=== PATIENT | male | born 1945 | race Caucasian/White ===

== ENCOUNTER 2020-11-24 06:26 | Day surgery (SDC) | payer MEDICARE, SELFPAY ==
[2020-11-21 07:58] VITALS: BMI 25.9
[2020-11-24] VITALS (9 sets, daily range): BP systolic 113–150; BP diastolic 45–85; PULSE 44–47; RESP 10–16; TEMP 36.3–36.5; O2SAT 96–100; BMI 25.9
--- NOTE | 2020-11-24 | PATH_ITS ---
[facility] Accession Number: [id number] . 01 Material submitted: . PART A: body - SPERMATOCELE PART B: scrotum - HYDROCELE SAC . 01 Diagnosis: A. Spermatocele: Cystic/membranous tissue, consistent with spermatocele. . B. Hydrocele Sac: Cystic/membranous tissue, consistent with hydrocele. MRV 11/27/2020 1133 Local . 01 Comment: The epithelium lining in part A (spermatocele) is short columnar or cuboidal, focally with possible cilia identified, supporting the interpretation of a spermatocele. . 01 Electronically signed: . Juli Lopez MD, Pathologist NPI- [id number] . 01 Gross description: . A. Received in formalin, labeled spermatocele consists of a 2.0 x 1.5 x 0.5 cm arcos-pink fragment of soft tissue, which is inked blue, serially sectioned and entirely submitted in cassettes A1-A2. B. Received in formalin, labeled hydrocele sac consists of a 4.0 x 3.0 x 2.5 cm arcos-pink fibromembranous fragment of soft tissue. Line Servicer sections are submitted in cassettes B1-B2. ([id number]) /MRV 11/25/2020 0947 Local . 01 Pathologist provided ICD-10: N43.3 . 01 CPT . 259442, 018806 Performed at: 01 [facility] [address] [place] [address], [place], [place] [id number] MD Derrick Wallace MD Phone: [phone]
--- NOTE | 2020-11-24 07:13 | PM.PREOP ---
Pre-operative Note Interval Note History & Physical reviewed/Exam performed by Physician: Yes Changes to H&P: No
[2020-11-24 07:17] LABS: COVID19 -Nasal RAPID Negative (Negative)
[2020-11-24] MEDS: LACTATED RINGERS 1,000 ML 42 ML IV ×2 (07:46→09:35)
[2020-11-24] MEDS: GABAPENTIN 300 MG CAPSULE PO (08:07)
[2020-11-24] MEDS: ACETAMINOPHEN 325 MG TABLET 975 MG PO (08:08)
--- NOTE | 2020-11-24 09:22 | SUR.OPER ---
Supine on padded OR bed, head on pillow, arms secured on padded arm boards at <90 degrees abduction, legs uncrossed, safety belt at thigh, tape over blanket over lower legs.
[2020-11-24] MEDS: BUPIVACAINE LIPOSOME 266 MG/20 ML VIAL INJ (09:25)
[2020-11-24] MEDS: CEFAZOLIN 1 GM VIAL 2 GM IV (09:26)
[2020-11-24] MEDS: BUPIVACAINE 0.25% (PF) VIAL 30 ML INJ (09:28)
[2020-11-24] MEDS: EPINEPHrine 1 MG/ML 0.15 MG INJ (09:29)
[2020-11-24] MEDS: NEOMYCIN/POLYMYXIN/BACITRA UD OINT 1 EACH TOP (09:31)
--- NOTE | 2020-11-24 10:37 | P.OP_ITS ---
Operative Date/Time/Diagnoses Date of procedure: 11/24/20 Time of procedure: 10:37 Pre-op diagnosis: Left hydrocele Post-op diagnosis: other (1. Complicated left hydrocele2. Multiple spermatoceles) Procedure & Clinicians Procedure: 1. Left hydrocelectomy-complicated 2. Left spermatocelectomy (multiple) Same procedure as scheduled: No (Multiple, incidental spermatoceles encounter) Indications: Symptomatic left hydrocele Surgeon: Jose Vital Click Yes if Unassisted: Yes Anesthesia Type: General and Local Operative Notes Findings: There was a simple appearing peripheral hydrocele sac. There multiple septations and chronic scarring of the tunica vaginalis. There were multiple spermatoceles measuring 4-20 mm in diameter Closure Type: primary Specimen(s): other (1. Spermatoceles 2. Hydrocele sac) Applied: drain(s) (10 Upper Sorbian fenestrated drain) Estimated Blood Loss (mL): 2 Blood products transfused: none Procedure in detail: The patient was positioned supine and was administered general anesthesia. The lower abdomen, genitalia, and groin were then prepped and draped in sterile fashion. A solution of cord% Marcaine with epinephrine was then infiltrated the midline scrotal raphae a and subcutaneous dartos fascia. The cautery pen was then used to divide the midline scrotal raphae a. The cautery pen was also used to divide the dartos fascia down the level the left tunica vaginalis. At this point appropriate plane was developed between the dartos fashion tunica vaginalis in a moderately large left hydrocele was then delivered from the left hemiscrotum. Cautery pen was then used to divide the midline tunica vaginalis anteriorly with the findings as described above. Extensive blunt constant sharp, and cautery dissection was required to open all the septations and excise redundant and scarred tunica vaginalis. Next, meticulous blunt, sharp, and cautery dissection was undertaken to isolate and mobilize multiple spermatoceles attached in a cluster. The base was then suture ligated with 2-0 Monocryl. Next, the tunica vaginalis was reflected posteriorly and a book sorter repair was conducted with a running horizontal mattress of 3-0 Monocryl. The inferior pole was secured to the inferior and inner scrotal wall with an interrupted 3-0 Monocryl. Next the inferolateral left scrotal wall was infiltrated with Exparel and a 10 Upper Sorbian fenestrated drain was passed through this area. The distal end of the drain was trimmed and the excess drain material discarded. The drain was secured to the skin using 2-0 silk. Next, the skin and dartos fascia along the midline incision was infiltrated with Exparel. The dartos fascia was then closed with a running vertical mattress of 2-0 Monocryl. The skin was reapproximated with a running horizontal mattress of 4-0 Monocryl. Neosporin ointment was then applied to the incision line. Dry sterile fluffs were then applied to the scrotum and the patient was fitted with an athletic supporter. The drain was then placed to bulb self suction. The patient was then awakened, transferred to [facility], and transferred to recovery in stable condition. Complications: none Post-operative Condition: stable Disposition: PACU Plan for aftercare: Discharge home
--- NOTE | 2020-11-24 10:41 | SUR.PHASEI ---
Patient from OR after General Anesth with Dr Melo and RN. Breathing unassisted on RA.
--- NOTE | 2020-12-01 09:17 | PM.HP.1 ---
History of Present Illness History of Present Illness Date Patient Seen: 11/24/20 Time Patient Seen: 07:30 Chief complaint: SDC Narrative: The patient is a 75-year-old white male presenting today for schedule left hydrocelectomy. The condition is been present perhaps for years, but over recent months the left hemiscrotum has demonstrated enlargement and increasing discomfort in the form of pain and tenderness. Most recent encounter 10/09/2020, was consistent with symptomatic hydrocele. Patient History Medical History BPH w urinary obs/LUTS Coronary heart disease Gout Hearing impairment Hyperlipidemia Incomplete bladder emptying Kidney stones Left hydrocele Surgical History H/O circumcision History of coronary artery stent placement Family & Social History Social History: household members spouse Tobacco & Substance use: Smoking Status Never smoker alcohol intake current alcohol intake frequency 3 or more drinks per day Substance Use Type does not use Meds Home Medications and Allergies Home Medications Medication Instructions Recorded Confirmed Type aspirin 81 mg chewable tablet 81 mg PO DAILY 10/09/20 11/24/20 History atorvastatin 40 mg tablet 40 mg PO DAILY 10/09/20 11/24/20 History tamsulosin 0.4 mg capsule (Flomax) 0.4 mg PO DAILY 10/09/20 11/24/20 History oxycodone 5 mg tablet 5 mg PO Q4H PRN #20 tab 11/24/20 Rx Allergies Allergy/AdvReac Type Severity Reaction Status Date / Time No Known Drug Allergies Allergy Verified 11/24/20 07:06 pollen Allergy Unknown Uncoded 10/09/20 10:50 Review of Systems Review of Systems ROS: Yes All systems reviewed with the patient and are negative except as otherwise documented Exam Vital Signs (past 8 hours): Oxygen Delivery Method Room Air Narrative Exam Narrative: He is a well-developed and well-nourished elderly gentleman in no acute distress. Head/neck-sclera clear and pupils are round and equal bilaterally. No visible evidence of adenopathy or JVD. Chest-clear, equal, and unlabored expansion bilaterally. Heart-regular rate and regular rhythm. No abnormal heart tones appreciated. Genitalia-normal adult phallus. Meatus is patent and orthotopic. Scrotum is without lesion, rash, or mass. Right testicle is descended and palpably normal. Left hemiscrotum is occupied by a moderately large fluid collection without palpable mass. Assessment & Plan Assessment & Plan narrative: Assessment: 1. Symptomatic left hydrocele. Plan: 1. Proceed with scheduled LEFT HYDROCELECTOMY. Time Spent With Patient Critical Care time: I spent a total of [] minutes of critical care time on this patient's care today; this time is exclusive of procedural time.
== END 2020-11-24 12:15 | disposition home or self-care (01) ==
PROVIDERS: Family Provider Student in an Organized Health Care Education/Training Program; PCP Student in an Organized Health Care Education/Training Program; Referring Provider Specialist; Visit Provider Specialist
PROC: (CPT 55040; principal; 2020-11-24 09:15)
DX: N43.2 Other hydrocele (principal); N43.42 Spermatocele of epididymis, multiple; N40.1 Benign prostatic hyperplasia with lower urinary tract symptoms; N13.8 Other obstructive and reflux uropathy; R33.8 Other retention of urine; I25.10 Atherosclerotic heart disease of native coronary artery without angina pectoris; E78.5 Hyperlipidemia, unspecified; Z20.822 Contact with and (suspected) exposure to COVID-19; Z95.5 Presence of coronary angioplasty implant and graft; Z87.442 Personal history of urinary calculi
CPT/HCPCS: 55040; 82962; 87635; C9290; J0171; J0690; J1100; J1885; J2250; J2405; J2704; J3010

== ENCOUNTER 2021-05-18 08:12 | Day surgery (SDC) | payer MEDICARE, SELFPAY ==
[2021-05-13 08:30] VITALS: BMI 25.4
[2021-05-18] VITALS (17 sets, daily range): BP systolic 84–143; BP diastolic 38–74; PULSE 40–53; RESP 10–23; TEMP 35.7–36.6; O2SAT 93–100; BMI 25.4
--- NOTE | 2021-05-18 08:29 | P.OP.PRE_ITS ---
Pre-operative Note COVID-19 Criteria for continued procedure: Expected advancement of disease process, Possibility delay results in more complex future surgery or treatment, Increased loss of function, Deterioration of the patient's condition or overall health, Delay expected to result in less-positive ultimate med/surg outcome and Non- surgical alternatives not available or appropriate per current SOC Interval Note History & Physical reviewed/Exam performed by Physician: Yes Changes to H&P: No
[2021-05-18] MEDS: ACETAMINOPHEN 325 MG TABLET 975 MG PO (08:35)
[2021-05-18] MEDS: LACTATED RINGERS 1,000 ML 42 ML IV ×2 (08:35→12:08)
[2021-05-18] MEDS: GABAPENTIN 300 MG CAPSULE PO (08:35)
--- NOTE | 2021-05-18 09:28 | SUR.PREOP ---
[facility] covid test result done on 05/16 verified by 2 nurses - myself and Priscilla Murdock RN
--- NOTE | 2021-05-18 09:55 | SUR.OPER ---
Lithotomy on padded OR bed, head on pillow, arms secured on padded arm boards at <90 degrees abduction. Legs secured in padded yellow fins stirrups.
[2021-05-18] MEDS: CEFAZOLIN 2 GM/20 ML SYRINGE IV (10:26)
[2021-05-18] MEDS: BELLADONNA/OPIUM SUPPOSITORIES 1 EACH PR (11:18)
--- NOTE | 2021-05-18 11:46 | PM.OP.1 ---
Operative Date/Time/Diagnoses Date of procedure: 05/18/21 Time of procedure: 11:46 Pre-op diagnosis: 1. BPH. 2. Bladder outlet obstruction. Post-op diagnosis: same Procedure & Clinicians Procedure: 1. Transurethral resection of prostate. Same procedure as scheduled: Yes Indications: 1. BPH. 2. Bladder outlet obstruction. Surgeon: Jose Vital Click Yes if Unassisted: Yes Anesthesia Type: General Operative Notes Findings: 1. Urethra-normal caliber without annular stricture or lesion. 2. External sphincter coapted with normal overlying urothelium. 3. 4.5-5 cm length prostatic urethra with markedly elevated median bar. 4. Bladder-2+ trabeculation. There is a narrow neck diverticulum emanating off the right posterior lateral wall. Ureteral orifices are normal position bilaterally with clear efflux. No evidence of stone, tumor. There is impressive intravesical protrusion of median lobe creating at globular obstruction of the bladder neck. Closure Type: not applicable Specimen(s): other (Prostate chips) Applied: catheter ([address] hematuria catheter.) Estimated Blood Loss (mL): 5 Blood products transfused: none Procedure in detail: The patient was positioned supine was administered general anesthesia. He was then repositioned semi lithotomy, and the lower abdomen, genitalia, and groin were then prepped and draped in sterile fashion. The resectoscope was then advanced in the lower urinary tract under direct visualization with the findings as described above. Next the sheath was fitted with the working element and electrocautery loop. Transurethral resection of prostate was commenced by 1st taking down the very large intravesical median lobe in median bar. There is modest residual lateral lobe hyperplasia which was resected from bladder neck to just proximal of the verumontanum as was the median lobe. All chips and clots were irrigated with the Nitza he evacuator and manually with the TUR loop. Hemostasis was obtained with electric cautery. The bladder was then left partially fills and resectoscope was removed. A 24 Macanese, 3 way hematuria catheter was then advanced and lower urinary track over a catheter stylet. The balloon was inflated to [address] catheter was then connected to normal saline continuous bladder irrigation and gravity outflow. Patient was then repositioned in supine, was awakened, and was transferred to [facility] for transport to PACU. Complications: none Post-operative Condition: stable Disposition: PACU Plan for aftercare: Admit as outpatient with a bed.
--- NOTE | 2021-05-18 12:11 | SUR.PHASEI ---
Pt arrived, oral airway in for patency of airway, 02 nasal cannula added. BP low, treated with Iv flds. BP responding well.
--- NOTE | 2021-05-18 12:15 | SUR.PHASEI ---
Airway out, report to Paige.
--- NOTE | 2021-05-18 12:21 | SUR.PHASEI ---
1214 Pt awoke to voice, oral airway removed, breathing unassisted. Assumed care from Priscilla RN. SBAR report at bedside.
--- NOTE | 2021-05-18 13:40 | SUR.PHASEI ---
Pt transferred to room 218. SBAR update at bedside to Chata PINEDA. Continuous bladder irriagtion in place, output light pink.
--- NOTE | 2021-05-18 14:02 | PC.NURSE ---
admit pt to room 218 from PACU. VSS; HR 45. pt states chronically in the 40s. Denies need for pain medication. Instructed pt to notify RN if discomfort increases or occurs. scant bleeding from urethra, mayte-pad in place. Continuous bladder irrigation with pale pink urinary output. Pt oriented to room and plan of care. supportive spouse at bedside. Message left on 's cell phone and at his clinic regarding orders for fluids and pain medication as they've been DC'd.
[2021-05-18] MEDS: TAMSULOSIN 0.4 MG CAPSULE 0.8 MG PO (21:11)
[2021-05-19 01:32] VITALS: BP 107/50; PULSE 52; RESP 18; TEMP 37.1; O2SAT 97
[2021-05-19 04:31] VITALS: BP 102/54; PULSE 51; RESP 18; TEMP 37; O2SAT 99
[2021-05-19 07:28] VITALS: O2SAT 99
[2021-05-19 08:03] VITALS: BP 125/64; PULSE 53; TEMP 37.1; O2SAT 99
[2021-05-19] MEDS: ASPIRIN 81 MG CHEW TAB PO (08:35)
[2021-05-19 11:57] VITALS: BP 115/58; PULSE 46; TEMP 37; O2SAT 100
--- NOTE | 2021-05-19 12:13 | PM.DS.1 ---
History of Present Illness History of Present Illness Date Patient Seen: 05/19/21 Time Patient Seen: 12:13 Chief complaint: TURP Narrative: Patient is a 75-year-old white male that underwent transurethral resection of the prostate for severe bladder outlet obstruction due to prostate on 05/18/2021. His postoperative course is been entirely unremarkable and that he has required no opioid analgesics, has tolerated general diet without nausea or vomiting, and is ambulating without assistance. Discharge Providers Provider Date of admission: 05/18/21 08:12 Discharge Date: 05/19/21 Primary care physician: Mandeep Velasquez MD Discharge provider: Jose Vital MD Summary Hospital Course Discharge Diagnosis: 1. Bladder outlet obstruction. 2. BPH. Hospital Course: Patient was admitted on the morning of 05/18/2021 and underwent uncomplicated transurethral resection of the prostate under general anesthesia. Postoperative course was entirely unremarkable as indicated in the HPI. Early in the morning on the 1st postop per day the continuous bladder irrigation inflow was discontinued and inflow plug placed. The patient subsequently ambulated without incident and outflow character remained a very light pink without clots. In the late morning of 05/19/2021 the patient was stable for discharge. Exam Vital Signs (past 8 hours): - 05/19/21 04:31 05/19/21 07:28 05/19/21 08:03 Temperature 98.6 F 98.7 F Pulse Rate 51 L 53 L Respiratory Rate 18 Blood Pressure 102/54 L 125/64 Pulse Oximetry 99 99 99 05/19/21 11:57 Temperature 98.6 F Pulse Rate 46 L Respiratory Rate Blood Pressure 115/58 L Pulse Oximetry 100 Oxygen Delivery Method Room Air Oxygen Flow Rate 0 Narrative Exam Narrative: Sitting upright in a bedside chair no acute distress. Abdomen is protuberant soft bowel tones are normal. Catheter outflow is a light pink/watermelon color without clots. [facility] Medical History (Updated 05/13/21 @ 09:13 by Sherry Bowen RN) BPH w urinary obs/LUTS Bradycardia Coronary heart disease Gout Hearing impairment Hyperlipidemia Incomplete bladder emptying Kidney stones Left hydrocele BONNIE (obstructive sleep apnea) Surgical History (Updated 05/13/21 @ 09:07 by Sherry Bowen RN) H/O circumcision History of coronary artery stent placement (~2000) History of coronary artery stent placement (~2005) History of hydrocelectomy (11/24/20) Social History marital status: number of children: 0 household members: spouse occupational status: other Smoking Status: Former smoker alcohol intake: current caffeine: Yes (coffee) Type(s) of exercise: walking duration: 30-45 minutes/day Discharge Assessment & Plan Assessment and Plan Assessment: Assessment: 1. Stable postop day 1. Status post transurethral resection of prostate for severe bladder outlet obstructive symptoms. Plan: 1. Discharge home today. 2. Schedule supervised voiding trial in the Urology Clinic 05/20/2021. 3. Follow-up surgical pathology report-pending at discharge. Discharge Plan Discharge Plan Patient Disposition: Home Provider Discharge Comment: Present to Urology Clinic at 7:30 a.m. 05/20/2021 for planned Oropeza catheter removal and voiding trial. Discharge orders & Medications Prescriptions: Continued atorvastatin 40 mg tablet 40 mg PO DAILY 0RF aspirin 81 mg tablet,chewable 81 mg PO DAILY 0RF tamsulosin [Flomax] 0.4 mg capsule 0.8 mg PO BEDTIME Qty: 180 3RF Follow up/Referrals: Mandeep Velasquez MD [Primary Care Provider] - Diet/Activity/Treatments Diet: Diet as Tolerated Activity: To not lift greater than 15 lb nor strenuous activity x4 weeks. Catheter: 2-way Oropeza Skin/Wound/Dressing Care Report to your healthcare provider any signs of infection, such as:: chills, fever, night sweats, increased pain and unusual drainage Visit Report/Discharge Packet Instructions: How to Care for Your Oropeza Catheter -- Male, DI for Transurethral Resection of the Prostate Stand Alone Forms: Surgery Discharge Discharge Data Primary Care Provider: Mandeep Velasquez Quality VTE Deep Vein Thrombosis/Pulmonary Embolism Present on Admission: No
--- NOTE | 2021-05-19 14:21 | PC.NURSE ---
1300 Discharge instructions and home care handout reviewed with patient, he states understanding and has no further questions or concerns at this time. Oropeza draining clear pink urine, and patient states understanding of how to care for his catheter at home. Patient able to ambulate and tolerating well. Patient instructed to follow up at [facility]/ urology clinic tomorrow at 730 am. Patient will start his antibiotic prescription tonight as directed. Escorted out via wheelchair by ZAY to be discharged to home with his .
--- NOTE | 2021-05-27 | PATH_ITS ---
[facility] Accession Number: [id number] No. of containers..01 Tissue . 01 Material submitted: . prostate - PROSTATE CHIPS . 02 Diagnosis: A. Prostate Chips, Resection: Benign prostatic stroma with benign epithelium. [facility] 05/25/2021 0135 Local . 02 Electronically signed: . Ilsa Serrano MD, Pathologist NPI- [id number] . 01 Gross description: . The specimen is received in formalin and labeled with the patient's name is composed of 7 grams of an aggregate of arcos-white soft tissue fragments which measures 7.0 x 4.0 x 1.0 cm in aggregate. The specimen is entirely submitted. ([id number]) /MRV 05/20/2021 1327 Local . 02 Pathologist provided ICD-10: N13.8 . 02 CPT . 806779 Specimen Comment: A courtesy copy of this report has been sent to [phone] Specimen Comment: A duplicate report has been generated due to demographic updates. Performed at: 01 [facility] [address] [facility], [place], [place] [id number] MD Derrick Wallace MD Phone: [phone] Performed at: 02 [facility] [address] [place], [place] [id number] MD Casi Marks MD Phone: [phone]
== END 2021-05-19 13:15 | disposition home or self-care (01) ==
LOC: AC 05-19 12:13 → OR 05-19 14:39
PROVIDERS: Family Provider Student in an Organized Health Care Education/Training Program; PCP Student in an Organized Health Care Education/Training Program; Referring Provider Specialist; Visit Provider Specialist
PROC: 0VT08ZZ Resection of Prostate, Via Natural or Artificial Opening Endoscopic (ICD-10-PCS; CPT 52601; principal; 2021-05-18 09:45)
DX: N40.0 Benign prostatic hyperplasia without lower urinary tract symptoms (principal); N13.8 Other obstructive and reflux uropathy
CPT/HCPCS: 52601; 87086; 94762; J0690; J1100; J2405; J2704

== ENCOUNTER → 2021-06-09 11:17 | Outpatient (CLI) | payer MEDICARE, SELFPAY ==
[2021-05-20 12:53] VITALS: BMI 25.4
== END ==
PROVIDERS: Family Provider Student in an Organized Health Care Education/Training Program; PCP Student in an Organized Health Care Education/Training Program; Visit Provider Specialist
DX: R30.0 Dysuria (principal); R33.9 Retention of urine, unspecified
CPT/HCPCS: 51798; 81002; 87077; 87086; 87186

== ENCOUNTER → 2021-06-25 11:12 | Outpatient (CLI) | payer MEDICARE, SELFPAY ==
[2021-05-20 12:53] VITALS: BMI 25.4
== END ==
PROVIDERS: Family Provider Student in an Organized Health Care Education/Training Program; PCP Student in an Organized Health Care Education/Training Program; Visit Provider Specialist
DX: Z09 Encounter for follow-up examination after completed treatment for conditions other than malignant neoplasm (principal); R30.0 Dysuria; N40.1 Benign prostatic hyperplasia with lower urinary tract symptoms; N13.8 Other obstructive and reflux uropathy
CPT/HCPCS: 51798; 81002; 87086

== ENCOUNTER → 2021-08-05 10:29 | Outpatient (CLI) | payer MEDICARE, SELFPAY ==
[2021-05-20 12:53] VITALS: BMI 25.4
== END ==
PROVIDERS: Family Provider Student in an Organized Health Care Education/Training Program; PCP Student in an Organized Health Care Education/Training Program; Visit Provider Specialist
DX: Z09 Encounter for follow-up examination after completed treatment for conditions other than malignant neoplasm (principal); R30.0 Dysuria
CPT/HCPCS: 51798; 81002; 87077; 87086; 87186

== ENCOUNTER → 2021-09-29 11:02 | Outpatient (CLI) | payer MEDICARE, SELFPAY ==
[2021-05-20 12:53] VITALS: BMI 25.4
== END ==
PROVIDERS: Family Provider Student in an Organized Health Care Education/Training Program; PCP Student in an Organized Health Care Education/Training Program; Visit Provider Specialist
DX: R30.0 Dysuria (principal); R33.9 Retention of urine, unspecified; R97.20 Elevated prostate specific antigen [PSA]
CPT/HCPCS: 51798; 81002; 87077; 87086; 87186; 99214

== ENCOUNTER → 2021-11-10 15:21 | Outpatient (CLI) | payer MEDICARE, SELFPAY ==
[2021-05-20 12:53] VITALS: BMI 25.4
== END ==
PROVIDERS: Family Provider Student in an Organized Health Care Education/Training Program; PCP Student in an Organized Health Care Education/Training Program; Visit Provider Specialist
DX: R33.9 Retention of urine, unspecified (principal)
CPT/HCPCS: 87086

== ENCOUNTER → 2022-01-19 12:38 | Outpatient (CLI) | payer MEDICARE, SELFPAY ==
[2021-05-20 12:53] VITALS: BMI 25.4
[2022-01-19 13:39] LABS: Appearance Urine UA CLEAR; Bilirubin Urine UA NEGATIVE (NEGATIVE); Color Urine UA YELLOW; Glucose Urine UA NEGATIVE (Negative); Ketones Urine UA NEGATIVE (NEGATIVE); Leukocyte Esterase Urine UA TRACE (NEGATIVE); Nitrite Urine UA NEGATIVE (Negative); Occult Blood Urine UA TRACE-INTACT (Negative); Protein Urine UA NEGATIVE (Negative); Urobilinogen Urine UA 0.2 E.U./dL (0.2)
[2022-01-19 14:14] LABS: Bacteria Urine Occasional (0-1); Culture Indicated Urine Specimen Cultured; RBC Urine 1-5/HPF (0-5/HPF); WBC Urine 0-1/HPF (0-5/HPF)
== END ==
PROVIDERS: Family Provider Student in an Organized Health Care Education/Training Program; PCP Student in an Organized Health Care Education/Training Program; Visit Provider Specialist
DX: N39.0 Urinary tract infection, site not specified (principal); N20.2 Calculus of kidney with calculus of ureter; Z87.440 Personal history of urinary (tract) infections
CPT/HCPCS: 81001; 87086; 99215

== ENCOUNTER 2022-02-01 09:21 | Day surgery (SDC) | payer MEDICARE, SELFPAY ==
[2021-05-20 12:53] VITALS: BMI 25.4
[2022-01-28 13:38] VITALS: BMI 25.4
--- NOTE | 2022-02-01 | DI.RAD.S_ITS ---
PROCEDURE: XR KUB INDICATIONS: Left ureteral calculus TECHNIQUE: One view of the abdomen acquired. COMPARISON: [facility], RG, CT KUB, 11/27/2021, 9:03. FINDINGS: Surgical changes and devices: None. Bowel: Nonspecific bowel gas pattern. Nondilated loops of bowel with multiple air-fluid levels. Soft tissues: Multiple bilateral renal calculi. Previous distal left ureteral calculus is not identified. Cannot exclude a more proximal ureteral calculus at the level of the top half of L4. Visualized solid organ contours appear normal in size. Bones: No suspicious bony lesions. IMPRESSION: 1. Nonspecific bowel gas pattern with multiple air-fluid levels. 2. Multiple renal stones. 3. No visualization of distal ureteral calculus on the left. However, there is a vague calcification on the left at the top half of L4 which may potentially represent a more proximal left ureteral calculus. Comment: If symptoms suggest possible ureteral calculus, consider repeat CT KUB. Dictated by: James Mehta M.D. on 02/01/2022 at 9:40 Approved by: James Mehta M.D. on 02/01/2022 at 9:43
--- NOTE | 2022-02-01 | DI.RAD.S_ITS ---
PROCEDURE: XR ABDOMEN 1V INDICATIONS: LEFT STATE PLACEMENT TECHNIQUE: 1 intraoperative image acquired by the Urology service. COMPARISON: None. Findings/impression: A single intraoperative image was obtained of the left upper quadrant showing ureteral stent projecting over the left renal fossa. Dictated by: Gustavo Haji M.D. on 02/01/2022 at 14:25 Approved by: Gustavo Haji M.D. on 02/01/2022 at 14:25
--- NOTE | 2022-02-01 | PATH_ITS ---
[facility] Accession Number: [id number] . 01 Material submitted: . ureter - URETER STONE . 01 Diagnosis: Ureter Stone: Calculi (for gross examination only). MRV 02/08/2022 1405 Local . 01 Electronically signed: . Selena Ellington MD, Pathologist NPI- [id number] . 01 Gross description: . The specimen is received in formalin labeled with the patient's name, , and ureter stone, and consists of multiple pinpoint arcos hard fragments consistent with calculi measuring less than 0.1 cm in greatest dimension. No tissue is identified. The specimen is for gross only evaluation. ([id number]) /MRV 02/03/2022 1433 Local . 01 Pathologist provided ICD-10: N20.1 . 01 CPT . 975787 Specimen Comment: A courtesy copy of this report has been sent to [phone] Performed at: 01 [facility] [address] [place] [address], [place], [place] [id number] MD Derrick Wallace MD Phone: [phone]
[2022-02-01] MEDS: LACTATED RINGERS 1,000 ML 21 ML IV (09:49)
[2022-02-01 09:55] VITALS: BP 150/83; PULSE 50; RESP 16; TEMP 36.3; O2SAT 100; BMI 25.4
[2022-02-01 10:02] LABS: COVID19 -Nasal RAPID Negative (Negative)
--- NOTE | 2022-02-01 11:10 | SUR.OPER ---
Lithotomy on padded OR bed, head on pillow, arms secured on padded arm boards at <90 degrees abduction. Legs secured in padded yellow fins stirrups.
[2022-02-01] MEDS: CEFAZOLIN 2 GM/100 ML PREMIX 100 ML IV (11:30)
[2022-02-01] MEDS: ACETAMINOPHEN IV 1,000 MG/100 ML VIAL 400 MG IV (11:40)
[2022-02-01] MEDS: GENTAMICIN 160 MG in SODIUM CHLORIDE 0.9% 100 ML 104 MG IV (11:45)
--- NOTE | 2022-02-01 12:28 | PM.OP.1 ---
Operative Date/Time/Diagnoses Date of procedure: 02/01/22 Time of procedure: 12:15 Pre-op diagnosis: 1. Obstructing 6 mm left distal ureteral calculus. 2. Bilateral nephrolithiasis. 3. Recurrent Klebsiella UTI. 4. Bladder diverticulum. Post-op diagnosis: same Procedure & Clinicians Procedure: 1. Cystoscopy/left ureteroscopic laser lithotripsy. 2. Cystoscopy/placement left ureteral stent (7 Moroccan by 22-32 cm multi-length). Same procedure as scheduled: Yes Indications: 1. Obstructing 6 mm left distal ureteral calculus. 2. Bilateral nephrolithiasis. 3. Recurrent Klebsiella UTI. 4. Bladder diverticulum. Surgeon: Jose Vital Click Yes if Unassisted: Yes Anesthesia Type: General Operative Notes Findings: 1. Urethra-normal caliber penile and distal bulbar segment without annular stricture or lesion. In the proximal bulbar segment there is a wide caliber, nonobstructing annular stricture proximally 1 cm distal to the external sphincter. 2. External sphincter-coapted with normal overlying urothelium. 3. Prostate-there are kissing distal apical lateral residual prostate lobes. Remainder of fossa is nonobstructing status post TUR. 4. Bladder-2+ trabeculation. There is cellule formation. There is a very small and narrow neck diverticulum at the left posterior lateral wall. More proximally, toward the left ureteral orifice there is a moderate-sized diverticulum with a wider mouth. There was amorphous debris and mild erythema within. The debris was irrigated out of the diverticulum at initial endoscopy. 5. Left ureter index calculus identified in location unchanged and consistent with preoperative imaging. The margins were faceted and there was evidence of rather severe urothelial edema and erythema at the impaction site. Intraoperative photographs were obtained depicting pre and post treatment conditions. Closure Type: not applicable Specimen(s): none sent Applied: other (Seven Moroccan by 22-32 cm multi-length stent) Estimated Blood Loss (mL): 0 Blood products transfused: none Procedure in detail: The patient was positioned supine was administered general anesthesia. He was then repositioned in semi lithotomy and the lower abdomen, genitalia groin prepped and draped in sterile fashion. The 22 Moroccan panendoscope was then passed the lower urinary tract with the findings as described above. A 0.35 hybrid guidewire was then advanced looking system direct and fluoroscopic guidance. A 12 Moroccan by 6 cm billing dilating catheter was then requested. This was advanced over the hybrid guidewire and positioned across the left ureterovesical junction. The biliary was then inflated 18 atmospheres and held in position for 5 minutes. The balloon was then deflated and backloaded off the hybrid guidewire. The semi rigid ureteral scope was then prepared and then passed into the lower urinary tract and then in the left ureteral orifice. The scope was then advanced proximally with the findings as described above. A 365 micron laser fiber was requested. Operating room personnel and patient were fitted with laser safety eyewear. Laser lithotripsy was then commenced with excellent resultant fragmentation and clearance of the multitude of small stone fragments using both hydrostatic and mechanical methods. The ureteral scope was removed. The panendoscope was then front loaded on the hybrid guidewire and advanced proximally. With the distal and within the bladder lumen the bladder was partially filled twice and drained. Next, a 7 Moroccan by 22-32 cm multi-length stent was selected and advanced over the hybrid guidewire under direct and fluoroscopic guidance. Stent was readily positioned in appear to be satisfactorily physician both fluoroscopically and under direct visualization of the distal coil. A RETRIEVAL LINE WAS LEFT ATTACHED. The bladder was then drained completely and the panendoscope was removed. The retrieval line was trimmed to an appropriate length distal to the urethral meatus. The patient was then repositioned in supine, awakened, transferred to [facility] and transferred to recovery in stable condition. Complications: none Post-operative Condition: stable Disposition: PACU Plan for aftercare: Discharge home.
[2022-02-01 12:31] VITALS: BP 132/65; PULSE 63; RESP 13; TEMP 36.4; O2SAT 95
[2022-02-01 12:34] VITALS: BP 125/60; PULSE 63; RESP 11; O2SAT 96
[2022-02-01 12:39] VITALS: BP 124/69; PULSE 59; RESP 12; O2SAT 97
[2022-02-01 12:44] VITALS: BP 131/69; PULSE 60; RESP 12; TEMP 36.2; O2SAT 97
[2022-02-01 12:51] VITALS: BP 144/79; PULSE 62; RESP 12; TEMP 36.5; O2SAT 97
== END 2022-02-01 13:15 | disposition home or self-care (01) ==
PROVIDERS: Family Provider Student in an Organized Health Care Education/Training Program; PCP Student in an Organized Health Care Education/Training Program; Referring Provider Specialist; Visit Provider Specialist
PROC: (CPT 52356; principal; 2022-02-01 10:45)
DX: N20.2 Calculus of kidney with calculus of ureter (principal); N32.3 Diverticulum of bladder; N39.0 Urinary tract infection, site not specified; B96.1 Klebsiella pneumoniae [K. pneumoniae] as the cause of diseases classified elsewhere
CPT/HCPCS: 52356; 74018; 76000; 87635; C1771; C9803; J0131; J0690; J1100; J2405; J2704; J3010

== ENCOUNTER → 2022-02-08 14:35 | Outpatient (CLI) | payer MEDICARE, SELFPAY ==
[2021-05-20 12:53] VITALS: BMI 25.4
[2022-02-08 14:41] LABS: Appearance Urine UA SL CLOUDY; Bilirubin Urine UA NEGATIVE (NEGATIVE); Color Urine UA YELLOW; Glucose Urine UA NEGATIVE (Negative); Ketones Urine UA NEGATIVE (NEGATIVE); Leukocyte Esterase Urine UA 3+ (NEGATIVE); Nitrite Urine UA NEGATIVE (Negative); Occult Blood Urine UA 2+ (Negative); Protein Urine UA TRACE (Negative); Specific Gravity Urine UA <=1.005 (1.000-1.035); Urobilinogen Urine UA 0.2 E.U./dL (0.2)
[2022-02-08 14:55] LABS: Bacteria Urine None Seen; Culture Indicated Urine Specimen Cultured; RBC Urine 1-5/HPF (0-5/HPF); Squamous Epithelial Cell Urine 0-1 /HPF (0-5/HPF); WBC Urine 10-30/HPF (0-5/HPF)
== END ==
PROVIDERS: Family Provider Student in an Organized Health Care Education/Training Program; PCP Student in an Organized Health Care Education/Training Program; Visit Provider Specialist
DX: N40.1 Benign prostatic hyperplasia with lower urinary tract symptoms (principal); N13.8 Other obstructive and reflux uropathy; N20.2 Calculus of kidney with calculus of ureter; N39.0 Urinary tract infection, site not specified
CPT/HCPCS: 81001; 87086; 99211